=== PATIENT | male | born 1990 | race Caucasian/White ===

== ENCOUNTER 2018-11-25 21:12 | Emergency (ER) | payer OTHER ==
[2018-11-25] MEDS: LIDOCAINE 1% (MDV) 10 ML INJ INJ (21:53)
[2018-11-25] MEDS: DIPHTH/TET/ACEL PERTUSS (ADULT) 0.5 ML VIAL IM* (21:53)
[2018-11-25] MEDS: LIDOCAINE 1% (MDV) 20 ML INJ INJ (23:45)
== END 2018-11-26 00:08 | disposition home or self-care (01) ==
LOC: FTE 11-26 00:08
DX: S02.2XXA Fracture of nasal bones, initial encounter for closed fracture (principal); S01.111A Laceration without foreign body of right eyelid and periocular area, initial encounter; F17.210 Nicotine dependence, cigarettes, uncomplicated; Y04.8XXA Assault by other bodily force, initial encounter; Z23 Encounter for immunization
CPT/HCPCS: 12013; 70486; 90471; 90715; 99284-25

== ENCOUNTER 2018-12-02 15:12 | Emergency (ER) | payer SELFPAY, OTHER | END 2018-12-02 16:59 | disposition left against medical advice (07) | LOC: FTE 16:59 | DX: Z53.21 Procedure and treatment not carried out due to patient leaving prior to being seen by health care provider (principal) ==